=== PATIENT | female | born 1985 | race Caucasian/White ===

== ENCOUNTER 2020-07-27 10:52 | Day surgery (SDC) | payer BC, OTHER, SELFPAY ==
--- NOTE | 2020-07-27 11:05 | RAD_ITS ---
STUDY: X-RAY - ABDOMEN/PELVIS REASON FOR EXAM: Female, 34 years old. Pre op, left stent removal, ESWL TECHNIQUE: Single AP view of the abdomen / pelvis. COMPARISON: None. FINDINGS: A left-sided double-J stent catheter is seen with the proximal tip in the left renal pelvis and distal tip in the bladder. I suspect a 5.4 mm calculus in the proximal left ureter. Questionable 5 mm calculus in the midportion of the left ureter. There is a moderate amount of colonic fecal material. The visualized liver, spleen and kidneys are grossly normal in size and morphology. There are calcified phleboliths in the pelvis. Normal visualized osseous structures. RAD/Abdomen Single View IMPRESSION: Left-sided double-J stent catheter has been placed. I suspect there are 2 small calculi in the proximal and midportion of the left ureter. Electronically Signed: Johnny Sol, at 11:30 EST , Service support ,
[2020-07-27 11:46] VITALS: BP 125/80; PULSE 78; RESP 16; TEMP 36.9; O2SAT 100; BMI 23.8
[2020-07-27] MEDS: Lactated Ringers 1,000 ML 100 ML IV ×2 (11:50→14:21)
[2020-07-27] MEDS: Cefazolin 2 GM in 0.9% Normal Saline 100 ML IV (13:00)
--- NOTE | 2020-07-27 13:55 | HP.PCM_ITS ---
History of Present Illness Date of Admission: 07/27/20 Chief Complaint: Left proximal ureteral calculi status post stent The patient is a 34 year old female who underwent cystoscopy and stent placement outside hospital she now presents for shockwave lithotripsy of the left renal calculi at the same time we will probably remove the stent today Past Medical History Allergies gabapentin Adverse Reaction (Verified 07/25/20 09:19) insomnia Home Medications: Ambulatory Orders Medication Instructions Recorded Cefdinir 300 mg PO Q12H 07/25/20 Etodolac 300 mg PO BID PRN 07/25/20 Tamsulosin HCl [Flomax] 0.4 mg PO QHS 07/25/20 Surgical History: no surgical history Smoking Status: Former smoker Tobacco Use: Non-smoker Review of Systems Constitutional: Denies: Chills, Fever, Weight Change HEENT: Denies: Head Aches, Sinus Congestion, Sinus Drainage Cardiovascular: Denies: Chest Pain, Palpitations Respiratory: Denies: Cough, Shortness of breath at rest, Sputum production Gastrointestinal: Denies: Abdominal Pain, Nausea, Vomiting Genitourinary: Denies: Dysuria Musculoskeletal: Denies: Joint Pain, Joint Tenderness Skin: Denies: Rash, Wounds Neurological: Denies: Numbness, Tingling, Focal weakness Psychiatric: Denies: Anxiety, Depression, Homicidal Ideations, Suicidal I deations Hematologic/ Lymphatic: Denies: Easy Bruising, Easy Bleeding VTE Information - Inpt Only VTE Present on Admission: No VTE Mechan Device Prophylaxis: SCD's - Physical Exam Vitals/I&O's: Vital Signs Temp Pulse Resp BP Pulse Ox 98.5 F 78 16 125/80 H 100 07/27/20 11:46 07/27/20 11:46 07/27/20 11:46 07/27/20 11:46 07/27/20 11:46 Oxygen Delivery Method Room Air Weight: 69 kg Body Mass Index (BMI) 23.8 Intake and Output for Last 24 Hours 07/25/20 07/26/20 07/27/20 23:59 23:59 23:59 Intake Total 110 / 110 Balance 110 / 110 General: Alert, Oriented x3, Cooperative HEENT: Atraumatic, PERRLA, EOMI, Normocephalic Neck: Supple, No JVD, Negative Carotid Bruits Lungs: Clear to auscultation, Normal air movement Cardiovascular: Regular rate, No murmurs Abdomen: Bowel Sounds Present, Soft, Non Tender Extremities: No edema, Capillary Refill Less than 3 Seconds Skin: No rashes, No breakdown Musculoskeletal: No Tenderness to Palpation of Joints or Extremities Neurological: Cranial nerves II-XII grossly intact Psych/Mental Status: Normal Affect, Appropriate Current Medications Acetaminophen (Acetaminophen 325 Mg Tablet) 650 mg PO Q4H PRN PRN PRN Reason: Pain Score 1-10 Lactated Ringer's () 1,000 mls @ 100 mls/hr IV .Q10H [facility] Last Admin: 07/27/20 11:50 Dose: 100 mls/hr Documented by: Lactated Ringer's () 1,000 mls @ 75 mls/hr IV .[id number] [facility] Oxycodone HCl (Oxycodone 5 Mg Tablet) 5 - 10 mg PO Q6H PRN PRN PRN Reason: Pain Score 4-10 Assessment/Plan Plan for left extracorporeal shockwave lithotripsy and stent removal.
--- NOTE | 2020-07-27 13:56 | DCINST_ITS ---
Discharge Diet: Light diet - advance as tolerated Discharge Activity: Return to Normal Activity Call your doctor if your incision/area has: Sudden Increased Bleeding Call your doctor if you observe: Fever of 101 or Higher Suture Line Care: Avoid Pulling/Pushing, Avoid Pinching/Bending Allergies/Adverse Reactions: Allergies gabapentin Adverse Reaction (Verified 07/25/20 09:19) insomnia Medications to take at Discharge Cefdinir 300 mg PO Q12H 07/25/20 Etodolac 300 mg PO BID PRN 07/25/20 Tamsulosin HCl [Flomax] 0.4 mg PO QHS 07/25/20 Primary Care Physician: Antoni Hernandez DO [Primary Care Provider] - Test Results: Test results from this visit will be discussed in further detail at your follow- up appointment, if applicable. Please Follow Up With: Shaan Mcdaniel MD When: please call to make an appointment.
--- NOTE | 2020-07-27 13:57 | PCM.OPRPT ---
Report of Operation Date of Procedure: 07/27/20 Pre-Operative Diagnosis: Left ureteral calculi status post stent Post-Operative Diagnosis: Same Surgery/Procedure Performed:: Cystoscopy left stent removal left extracorporeal shockwave lithotripsy Description of Surgical Findings:: Patient presents to the hospital for treatment of a kidney stone with shockwave lithotripsy. In the preoperative area and x-ray was done to confirm the location of the stone. The x-ray was reviewed and the stone location was reviewed. In the preoperative setting I spoke with the patient regarding the treatment of the stone how the treatment would be conducted and the expectations after surgery. The patient understands there is a risk of bleeding and infection. Also discussed the very rare risk of hematoma or damage to the kidney. We also discussed the risk that the shockwave machine will fail to break the stone adequately and that the patient may need other surgical procedures. We also discussed the possibility that the patient may need a stent after the procedure. After reviewing the procedure with the patient, the patient is signed the consent form all the patient's questions were addressed and was taken back to the operating room for treatment of a kidney stone. Patient was taken back to the operating room, patient was identified by the nursing staff, we identified the side of the treatment and the patient side of treatment had been marked by my initials. The patient underwent general anesthetic and was placed supine on the lithotripter table. We then used fluoroscopy to identify the stone on the Left side. We then positioned the patient under the lithotripter and we used triangulation technique to identify the location of the stone and then we made sure that the stone was engaged in the F2 focal point of F2 Donier lithoprior machine. Once the patient was positioned appropriately and the stone was identified and placed in the F2 focal point of the lithotripter machine we then proceeded with shockwave lithotripsy. In the beginning the shockwave was delivered at a rate of 90 shocks per minute, we monitor the EKG for any ectopy. The power was slowly increased to 5 kV and subsequently at the 7 kV. We then proceeded with the treatment we move the therapy had around during the treatment to make sure the stone stayed in the F2 focal point during the entire treatment. Once the stone had broken up completely then we stopped the treatment a total of about 3000 shockwaves were delivered to the stone under fluoroscopic guidance. The patient's urethra and genitals were prepped and draped in usual sterile fashion. I went into the bladder with a 21 Pashto rigid cystourethroscope. I grabbed the stent emanating from the Left ureteral orifice and then gently remove the stent from the bladder. I then drained the patient's bladder. At this point the patient's anesthetic was reversed patient was extubated and taken back to the PACU in stable condition. The patient was given instructions to call the office to make an a follow-up appointment. Type of Anesthesia:: General Drains: stent removed - Admit VTE Documentation VTE Present on Admission: No VTE Mechan Device Prophylaxis: SCD's
[2020-07-27 14:16] VITALS: BP 125/80; BP 140/97; PULSE 90; RESP 20; TEMP 35.6; O2SAT 95
[2020-07-27 14:31] VITALS: BP 125/80; BP 136/90; PULSE 68; RESP 16; O2SAT 94
[2020-07-27] MEDS: Ketorolac 15 MG/ML Vial IV (14:34)
[2020-07-27 14:45] VITALS: BP 125/80; BP 130/88; PULSE 71; RESP 16; TEMP 36.5; O2SAT 98
[2020-07-27] MEDS: Acetaminophen 325 MG Tablet 650 MG PO (15:19)
[2020-07-27 15:20] VITALS: BP 125/80
== END 2020-07-27 15:36 | disposition home or self-care (01) ==
LOC: SDC 10:53 → AC 10:55
PROVIDERS: PCP Student in an Organized Health Care Education/Training Program; Referring Provider Student in an Organized Health Care Education/Training Program; Visit Provider Urology
PROC: (CPT 50590; principal; 2020-07-27 12:35)
DX: N20.1 Calculus of ureter (principal); Z87.891 Personal history of nicotine dependence
CPT/HCPCS: 50590; 52310; 74018; J7120; J2405

== ENCOUNTER → 2020-08-23 14:28 | Outpatient (CLI) | payer BC, OTHER, SELFPAY ==
[2020-07-27 11:46] VITALS: BMI 23.8
--- NOTE | 2020-08-23 14:31 | RAD_ITS ---
STUDY: X-RAY - ABDOMEN/PELVIS REASON FOR EXAM: Female, 34 years old. STENT REMOVED X2 WEEKS AGO. TUBAL SURGERY. SURGERY 10 YEARS AGO TO REMOVE LEFT OVARY AND FALLOPIAN TUBE. TECHNIQUE: Single AP view of the abdomen / pelvis. COMPARISON: Comparison is made with prior study dated 07/27/2020. FINDINGS: Normal visualized lung bases. There is an unremarkable bowel gas pattern. The previously seen left double-J stent catheter has been removed. No abnormal calcification is seen overlying the kidneys or course of the ureters. There are calcified phleboliths in the pelvis. A fallopian tube clip is seen in the right hemipelvis. Normal visualized osseous structures. RAD/Abdomen Single View IMPRESSION: Normal x-ray examination of the abdomen and pelvis. Electronically Signed: Johnny Sol, at 15:22 EST , Service support ,
== END ==
PROVIDERS: PCP Student in an Organized Health Care Education/Training Program; Referring Provider Urology; Visit Provider Urology
DX: N20.0 Calculus of kidney (principal)
CPT/HCPCS: 74018